=== PATIENT | male | born 1990 | race Caucasian/White ===

== ENCOUNTER 2018-07-16 13:47 | Emergency (ER) | payer OTHER ==
[2018-07-16 14:58] LABS: PLATELET COUNT 235 10^3/uL (150-400)
--- NOTE | 2018-07-16 15:24 | EDPHY ---
H & P Stated Complaint: CP SINCE 0200 ABNL EKG AT Time Seen by Provider: 07/16/18 15:13 HPI/ROS: CHIEF COMPLAINT: Chest tightness for 12 hr HISTORY OF PRESENT ILLNESS: The patient is a 28-year-old healthy man who comes to the emergency department complaining of chest tightness for the last 12 hr. No shortness of breath. No cardiac history. He presented to an urgent care where an EKG was done and was found to have right bundle branch block and left anterior fascicular block with normal repolarization pattern. They recommended that he follow up with a clinic director as an outpatient however he continued to have chest tightness and so they told him to come to the ER. He has had no recent trauma. He states however that he did have surgery on May 19 for right inguinal hernia repair. Also he flew last Wednesday and again on Wednesday back and forth to [place]. Also he is recently filed a worker's compensation claim for inhaling "refractory dust". Which she states is somewhat similar to asbestos. He has experienced shortness of breath previously from this but has not experienced chest tightness. No recent fever. No cough. No hypoxia. Severity: Moderate Modifying factors: None REVIEW OF SYSTEMS: Constitutional: denies: chills, fever, recent illness, recent injury EENTM: denies: blurred vision, double vision, nose congestion Respiratory: See HPI denies: cough, shortness of breath Cardiac: See HPI denies: irregular heart rate, lightheadedness, palpitations Gastrointestinal/Abdominal: denies: abdominal pain, diarrhea, nausea, vomiting, blood streaked stools Genitourinary: denies: dysuria, frequency, hematuria, pain Musculoskeletal: denies: joint pain, muscle pain Skin: denies: lesions, rash, jaundice, bruising Neurological: denies: headache, numbness, paresthesia, tingling, dizziness, weakness Hematologic/Lymphatic: denies: blood clots, easy bleeding, easy bruising Immunologic/allergic: denies: HIV/AIDS, transplant 10 systems reviewed and negative except as noted EXAM: GENERAL: Well-appearing, well-nourished and in no acute distress. Thin muscular chest HEAD: Atraumatic, normocephalic. EYES: Pupils equal round and reactive to light, extraocular movements intact, sclera anicteric, conjunctiva are normal. ENT: TMs normal, nares patent, oropharynx clear without exudates. Moist mucous membranes. NECK: Normal range of motion, supple without lymphadenopathy or JVD. LUNGS: Breath sounds clear to auscultation bilaterally and equal. No wheezes rales or rhonchi. HEART: Regular rate and rhythm without murmurs, rubs or gallops. ABDOMEN: Soft, nontender, normoactive bowel sounds. No guarding, no rebound. No masses appreciated. BACK: No CVA tenderness, no spinal tenderness, step-offs or deformities EXTREMITIES: Normal range of motion, no pitting or edema. No clubbing or cyanosis. NEUROLOGICAL: Cranial nerves II through XII grossly intact. Normal speech, normal gait. 5/5 strength, normal movement in all extremities, normal sensation , normal reflexes PSYCH: Normal mood, normal affect. SKIN: Warm, dry, normal turgor, no visible rashes or lesions. Source: Patient Exam Limitations: No limitations - Personal History Current Tetanus Diphtheria and Acellular Pertussis (TDAP): Unsure - Medical/Surgical History Hx Asthma: No Hx Chronic Respiratory Disease: No Hx Diabetes: No Hx Cardiac Disease: No Hx Renal Disease: No Hx Cirrhosis: No Hx Alcoholism: No Hx HIV/AIDS: No Hx Splenectomy or Spleen Trauma: No Other PMH: R INGUINAL HERNIA SURG - Family History Significant Family History: No pertinent family hx - Social History Smoking Status: Never smoked Alcohol Use: Sober Drug Use: None Constitutional: Initial Vital Signs Temperature (C) 36.8 C 07/16/18 13:52 Heart Rate 59 L 07/16/18 13:52 Respiratory Rate 18 07/16/18 13:52 Blood Pressure 128/81 H 07/16/18 13:52 O2 Sat (%) 99 07/16/18 13:52 O2 Delivery Mode Room Air Allergies/Adverse Reactions: No Known Allergies Allergy (Unverified 07/16/18 13:51) Home Medications: Medication Instructions Recorded NK [No Known Home Meds] 07/16/18 Medical Decision Making - Diagnostics EKG Interpretation: An EKG obtained and was read and documented in trace view. Please see trace view for full reading and report. Sinus rhythm with bifascicular block and expected normal repolarization abnormality. ED Course/Re-evaluation: His EKG is not concerning. I suspect that this is from his thin chest wall and muscular build. Troponin was done at triage and is negative. D-dimer was not done. I will add this. Chest x-ray is also pending. 4:15 p.m. the patient feels reassured. Lab work is reassuring. X-rays reassuring. He understands we do not have an explanation for his chest tightness today. I do not think that it is a myocardial infarction ischemia. I did recommend that he follow up Cardiology if his symptoms persist. Special if they worsen with exercise or exertion. He agrees with this. He typically sees [facility]. Differential Diagnosis: Partial list of the Differential diagnosis considered include but were not limited to; chest tightness, bronchitis, pleurisy, PE and although unlikely based on the history and physical exam, I also considered acute coronary disease , pneumonia, pneumothorax. I discussed these differential diagnoses and the plan with the patient as well as the usual and expected course. The patient understands that the diagnosis is provisional and that in medicine we are not always correct and that further workup is often warranted. Usual and customary warnings were given. All of the patient's questions were answered. The patient was instructed to return to the emergency department should the symptoms at all worsen or return, otherwise to followup with the physician as we discussed. - Data Points Laboratory Results: Laboratory Results 07/16/18 14:22 07/16/18 14:22 Point of Care Test Results: Chemistry 07/16/18 14:59 POC Troponin I 0.00 ng/mL ng/mL (0.00-0.08) Departure - Departure Disposition: Home, Routine, Self-Care Clinical Impression: Chest tightness Condition: Fair Instructions: Chest Pain (ED) Additional Instructions: I spoke with [facility] who will notify your primary care doctor to arrange stress test or echocardiogram. Referrals: NONE *PRIMARY CARE P,. [Primary Care Provider] - As per Instructions [facility] ,. [Edm Groups for Call Sched] - 2-3 days, call for appt.
[2018-07-16 16:50] VITALS: BP 118/69
--- NOTE | 2018-07-17 18:59 | CPEKG ---
Test Reason : OPEN Blood Pressure : / mmHG Vent. Rate : 078 BPM Atrial Rate : 078 BPM P-R Int : 153 ms QRS Dur : 126 ms QT Int : 407 ms P-R-T Axes : 081 -66 047 degrees QTc Int : 464 ms Sinus rhythm Left atrial enlargement RBBB and LAFB ST elev, probable normal early repol pattern Confirmed by Aaron Head ([id number] on 07/17/2018 6:58:23 PM Referred By: Confirmed By:Aaron Head
== END 2018-07-16 16:51 | disposition home or self-care (01) ==
DX: R07.9 Chest pain, unspecified (principal)
CPT/HCPCS: 84484-PO